=== PATIENT | female | born 1970 | race American Indian/Alaskan Native ===

== ENCOUNTER 2018-09-16 16:13 | Emergency (ER) | payer OTHER ==
--- NOTE | 2018-09-16 18:08 | Emergency Department Report ---
ED General Adult HPI - General Chief complaint: BP Check / Ring removal req Stated complaint: RING STUCK ON FINGER Time Seen by Provider: 09/16/18 17:30 Source: patient Mode of arrival: Ambulatory Limitations: No Limitations - History of Present Illness Initial comments: Patient is a 48-year-old female who has had a ring stuck on her right ring finger for the past 2 days. Patient states that she normally wears this ring on her pinky finger on the left hand but she was doing some tidying up at home and the ring Slipping off so she put it on her right ring finger. Patient fell asleep and states that the next day she is unable to remove the ring and the ring is present on this finger for the past 2 days. Patient has tried to remove it herself at home with Reglan and dental floss and she also saw jeweler who is unable to cut the ring off. Patient states the right is hematest. Patient was having some throbbing pain that is a 5 out of 10 in severity mostly when the ring is trying to be removed. ED Review of Systems ROS: Stated complaint: RING STUCK ON FINGER Other details as noted in HPI Comment: All other systems reviewed and negative ED Physical Exam - General Limitations: No Limitations General appearance: alert, in no apparent distress - Head Head exam: Present: atraumatic, normocephalic - Eye Eye exam: Present: normal appearance. Absent: PERRL, EOMI - Extremities Exam Extremities exam: Present: other (patient's right ring finger has a ring in place. There is some swelling to the PIP joint.) ED Medical Decision Making - Medical Decision Making I was able to put the patient's right hand and a ice bath for approximately 10 minutes. Patient's had the ring coated in hospital lubricant. I was also able to inject some lubricant using a 22-gauge IV catheter underneath the ring. This did provide some decreased friction between the ring and the patient's finger. While raising the finger above the patient's head and was able to slowly over approximately 10 minutes and twist the ring from the patient's finger. Critical care attestation.: If time is entered above; I have spent that time in minutes in the direct care of this critically ill patient, excluding procedure time. ED Disposition Clinical Impression: History of retained foreign body fully removed Disposition: DC-01 TO HOME OR SELFCARE Is pt being admited?: No Does the pt Need Aspirin: No Condition: Stable Referrals: MAURA MAC MD [Primary Care Provider] - 3-5 Days
[2018-09-16 18:21] VITALS: BP 170/94
== END 2018-09-16 18:14 | disposition home or self-care (01) ==
LOC: ED 16:13
DX: S60.454A Superficial foreign body of right ring finger, initial encounter (principal); X58.XXXA Exposure to other specified factors, initial encounter; Y93.89 Activity, other specified; Y92.89 Other specified places as the place of occurrence of the external cause; Y99.8 Other external cause status
CPT/HCPCS: 99282; 99283